=== PATIENT | female | born 1945 | race Hispanic/Latino ===

== ENCOUNTER 2017-04-01 09:02 | Day surgery (SDC) | payer MEDICARE, BC ==
[2014-01-20 15:34] VITALS: BMI 33.0
[2017-04-01] MEDS ORDERED: Propofol 10 mg/ml Inj (20 ML) ONE (11:58)
[2017-04-01 13:30] VITALS: BP 130/83; PULSE 69; RESP 18; TEMP 98.2; O2SAT 98
== END 2017-04-01 13:50 | disposition home or self-care (01) ==
LOC: ENDO 09:02
PROVIDERS: ATTEND Internal Medicine
DX: K51.90 Ulcerative colitis, unspecified, without complications (principal); D12.2 Benign neoplasm of ascending colon; K63.5 Polyp of colon; K57.30 Diverticulosis of large intestine without perforation or abscess without bleeding; K64.8 Other hemorrhoids
CPT/HCPCS: 45380; 88305; J2001; J2704; J7040

== ENCOUNTER 2018-12-04 06:55 | Day surgery (SDC) | payer MEDICARE, BC ==
[2018-12-04] MEDS ORDERED: Simethicone 40 mg/0.6 ml Liquid (30 ml) ONE (07:15)
[2018-12-04 07:24] VITALS: BMI 34.4
[2018-12-04] MEDS ORDERED: Methylene Blue 10 mg/mL(10ml) IV ONE (07:29)
[2018-12-04] MEDS ORDERED: Dexamethasone 4 mg/1 ml ONE ×2 (08:13→08:15)
[2018-12-04] MEDS ORDERED: Sodium Chloride 0.9% 1,000 ML IV SCH (08:30)
[2018-12-04 09:56] VITALS: BP 126/87; PULSE 102; RESP 16; TEMP 98.7
[2018-12-04 09:57] VITALS: O2SAT 98
== END 2018-12-04 09:58 | disposition home or self-care (01) ==
LOC: ENDO 06:55
PROVIDERS: ATTEND Internal Medicine Gastroenterology
DX: K51.50 Left sided colitis without complications (principal); K57.30 Diverticulosis of large intestine without perforation or abscess without bleeding; K64.1 Second degree hemorrhoids; K29.70 Gastritis, unspecified, without bleeding; K44.9 Diaphragmatic hernia without obstruction or gangrene; I10 Essential (primary) hypertension
CPT/HCPCS: 43239; 45380; 88305; 88342; J1100; J7030; J7040